=== PATIENT | male | born 1980 | race Caucasian/White ===

== ENCOUNTER 2017-04-08 22:08 | Emergency (ER) | payer OTHER ==
[~2017-04-08] VITALS: Ht 180.3 cm; Wt 122.5 kg
[~2017-04-08 22:08] MED LIST: DIBU30TO PR; DOCU100 PO; QUET100 PO
[2017-04-09] MEDS ORDERED: Percocet 5-3251 EACH PO (00:30)
[2017-04-09] MEDS ORDERED: Crutch1 EACH MISC (00:31)
== END 2017-04-09 00:36 | disposition home or self-care (01) ==
LOC: ER 22:08
DX: S93.401A Sprain of unspecified ligament of right ankle, initial encounter (principal); F32.9 Major depressive disorder, single episode, unspecified; F41.9 Anxiety disorder, unspecified; F17.200 Nicotine dependence, unspecified, uncomplicated; X50.9XXA Other and unspecified overexertion or strenuous movements or postures, initial encounter
CPT/HCPCS: 29515; 73610; 73620; 99283

== ENCOUNTER 2017-08-03 17:38 | Emergency (ER) | payer OTHER ==
[~2017-08-03] VITALS: Ht 180.3 cm; Wt 124.7 kg
[~2017-08-03 17:38] MED LIST changes: +Crutch1 EACH MISC; +Percocet 5-3251 EACH PO
[2017-08-03] MEDS ORDERED: DICL75ER PO (18:31)
[2017-08-03] MEDS ORDERED: Augmentin 875-1 EACH PO (18:31)
== END 2017-08-03 19:27 | disposition home or self-care (01) ==
LOC: ER 17:38
DX: S61.451A Open bite of right hand, initial encounter (principal); W54.0XXA Bitten by dog, initial encounter; Z79.899 Other long term (current) drug therapy; F41.9 Anxiety disorder, unspecified; F32.9 Major depressive disorder, single episode, unspecified; F17.210 Nicotine dependence, cigarettes, uncomplicated
CPT/HCPCS: 99283

== ENCOUNTER 2018-04-18 09:02 | Emergency (ER) | payer OTHER ==
[~2018-04-18] VITALS: Ht 180.3 cm; Wt 117.9 kg
[~2018-04-18 09:02] MED LIST changes: +Augmentin 875-1 EACH PO; +DICL75ER PO
== END 2018-04-18 11:09 | disposition home or self-care (01) ==
LOC: ER 09:02
DX: M77.31 Calcaneal spur, right foot (principal); F17.210 Nicotine dependence, cigarettes, uncomplicated
CPT/HCPCS: 73630; 99283-25

== ENCOUNTER 2020-09-02 20:11 | Emergency (ER) | payer OTHER ==
[~2020-09-02] VITALS: Ht 182.9 cm; Wt 108.9 kg
[~2020-09-02 20:11] MED LIST changes: +CYCL10 PO; +PRED20 PO
[2020-09-02] MEDS ORDERED: Robaxin750 MG PO (21:00)
[2020-09-02] MEDS ORDERED: Voltaren100 GM TOP (21:00)
[2020-09-02] MEDS ORDERED: Norco 5-325 Ta1 EACH PO (21:02)
== END 2020-09-02 21:15 | disposition home or self-care (01) ==
LOC: ER 20:11
DX: M54.5 Low back pain (principal); F17.210 Nicotine dependence, cigarettes, uncomplicated; Z79.52 Long term (current) use of systemic steroids; Z79.899 Other long term (current) drug therapy
CPT/HCPCS: 96372; 99282-25; J1885

== ENCOUNTER 2021-11-19 15:53 | Emergency (ER) | payer OTHER ==
[~2021-11-19] VITALS: Ht 180.3 cm; Wt 120.2 kg
[~2021-11-19 15:53] MED LIST changes: +Norco 5-325 Ta1 EACH PO; +Robaxin750 MG PO; +Voltaren100 GM TOP
== END 2021-11-19 16:36 | disposition home or self-care (01) ==
LOC: ER 15:53
DX: U07.1 COVID-19 (principal); F17.210 Nicotine dependence, cigarettes, uncomplicated; Z79.52 Long term (current) use of systemic steroids; Z79.899 Other long term (current) drug therapy
CPT/HCPCS: 99283